=== PATIENT | female | born 1995 | race Caucasian/White ===

== ENCOUNTER 2024-11-04 09:06 | Emergency (ER) | payer MEDICAID ==
[~2024-11-04] VITALS: Ht 160 cm; Wt 53.0 kg
[2024-11-04 09:39] LABS: BASOPHILS % 0.3 % (0.0-2.0); EOSINOPHILS % 0.3 % (0.0-5.0); HEMATOCRIT. 39.7 % (36.0-48.0); HEMOGLOBIN. 13.4 g/dL (12.0-16.0); LYMPHOCYTES % 12.2 % (20.0-50.0); MEAN CORPUSCULAR HEMOGLOBIN 30.6 pg (28.0-32.0); MEAN CORPUSCULAR HGB CONC 33.7 g/dL (31.0-37.0); MEAN CORPUSCULAR VOLUME 90.9 fL (81.0-99.0); MEAN PLATELET VOLUME 8.7 fl (7.4-10.4); MONOCYTES % 5.1 % (2.0-8.0); NEUTROPHILS % 82.1 % (40.0-76.0); PLATELET 212 x1000/uL (130-400); RED BLOOD CELL COUNT 4.36 mill/uL (4.2-5.4); RED CELL DISTRIBUTION WIDTH 13.8 % (11.6-14.6); WHITE BLOOD COUNT 9.2 x1000/uL (4.5-11.0)
[2024-11-04 09:41] VITALS: O2SAT 100
[2024-11-04 09:44] LABS: CHLORIDE 110 mEq/L (98-107); SODIUM 143 mEq/L (136-145)
[2024-11-04 09:45] LABS: CALCIUM 8.8 mg/dL (8.7-10.4); CARBON DIOXIDE 27 mEq/L (21-32)
[2024-11-04 09:50] LABS: CREATININE 0.7 mg/dL (0.6-1.0); GLUCOSE 102 mg/dL (70-105); UREA NITROGEN BLOOD 13 mg/dL (9-23)
[2024-11-04 09:51] LABS: ALANINE AMINOTRANSFERASE 10 IU/L (10-49); ALBUMIN 4.2 g/dL (3.2-4.8); ASPARTATE AMINOTRANSFERASE 17 IU/L (<34)
[2024-11-04 09:52] LABS: BILIRUBIN DIRECT < 0.1 mg/dL (<=3.0); BILIRUBIN TOTAL 0.2 mg/dL (0.1-1.0); PROTEIN TOTAL 7.1 g/dL (6.0-8.3)
[2024-11-04] MEDS: ACETAMINOPHEN 325MG TABLET PO ONE (10:46)
[2024-11-04] MEDS: DIPHENHYDRAMINE 50MG/ML VIAL IV ONE (10:47)
[2024-11-04] MEDS: SODIUM CHLORIDE 0.9% 1,000 ML IV ONE (10:47)
[2024-11-04] MEDS: KETOROLAC 15MG/ML VIAL IV ONE (10:47)
[2024-11-04] MEDS: METOCLOPRAMIDE HCL 10MG/2ML VIAL IV ONE (10:47)
[2024-11-04 11:33] LABS: CLARITY URINE TURBID (CLEAR); COLOR URINE YELLOW (YELLOW); GLUCOSE URINE NEGATIVE (NEGATIVE); KETONES URINE NEGATIVE (NEGATIVE); LEUKOCYTE ESTERASE URINE TRACE (NEGATIVE); NITRITE URINE NEGATIVE (NEGATIVE); OCCULT BLOOD URINE NEGATIVE (NEGATIVE); PH URINE 8.5 (4.5-8.0); PROTEIN URINE 1+ (NEGATIVE); SPECIFIC GRAVITY URINE 1.034 (1.005-1.030); UROBILINOGEN URINE 0.2 E.U./dL (0.2-1.0)
[2024-11-04 11:38] LABS: UCG SCREEN NEGATIVE
[2024-11-04 11:39] LABS: UCG KIT EXPIRATION DATE 11/27/2026
[2024-11-04 11:46] LABS: MUCUS URINE 2+ /lpf (< = 2+); SQUAMOUS EPITHELIAL CELL URINE 2+ /lpf (RARE/1+)
[2024-11-04 11:48] VITALS: BP 107/66; PULSE 74; RESP 14; TEMP 36.6; O2SAT 100
[2024-11-04] MEDS ORDERED: ONDA-239 PO (11:48)
[2024-11-04 11:49] LABS: BACTERIA URINE 1+
[2024-11-04 11:50] LABS: RBC URINE NONE SEEN /hpf (0-2); WBC URINE 0-2 /hpf (0-2)
== END 2024-11-04 11:54 | disposition home or self-care (01) ==
LOC: ER 09:06
DX: G43.909 Migraine, unspecified, not intractable, without status migrainosus (principal); K52.9 Noninfective gastroenteritis and colitis, unspecified
CPT/HCPCS: 80076; 80048; 81003; 81025; 83690; 85025; 36415; 96361; 96374; 96375; 99284; J1200; J1885; J2765; J7030; Z7610 ×2